=== PATIENT | male | born 1965 | race Two or more races ===

== ENCOUNTER 2018-10-01 02:55 | Emergency (ER) | payer SELFPAY ==
[~2018-10-01] VITALS: Ht 170.2 cm; Wt 63.5 kg
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
[2018-10-01] MEDS ORDERED: IV NS 0.9% 1,000 ML BAG IV ONE (03:00)
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
--- NOTE | 2018-10-01 03:08 | NUR ---
PT TAKEN TO RADIOLOGY VIA JODI WITH RN
[2018-10-01 03:30] LABS: BASOPHILS % (AUTO) 0.5 % (0.0-2.0); EOSINOPHILS % (AUTO) 1.1 % (0.0-6.0); HEMATOCRIT 43 % (39-51); HEMOGLOBIN 14.7 g/dL (13.5-17.5); LYMPHOCYTES # (AUTO) 2.1 /CMM (0.8-4.8); LYMPHOCYTES % (AUTO) 28.5 % (20.0-44.0); MEAN CORPUSCULAR HGB CONC 34 g/dl (31.0-36.0); MEAN CORPUSCULAR VOLUME 98 fL (80-96); MONOCYTES # (AUTO) 0.7 /CMM (0.1-1.30); NEUTROPHILS # (AUTO) 4.4 /CMM (1.8-8.9); NEUTROPHILS % (AUTO) 59.9 % (43.0-81.0); PLATELET COUNT (AUTO) 271 /CMM (150-450); RED BLOOD CELL COUNT(AUTO) 4.44 MIL/uL (4.5-6.0); WHITE BLOOD COUNT (AUTO) 7.3 K/uL (4.3-11.0)
[2018-10-01] MEDS ORDERED: TDAP [DIPH/PERTUSSIS/TET] 0.5 ML VIAL IM ONE ×2 (03:30→03:41)
--- NOTE | 2018-10-01 03:30 | NUR ---
POLICE AT BEDSIDE
[2018-10-01] MEDS ORDERED: LIDOCAINE 1%-EPI 1:100,000 20 ML VIAL TP ONE (04:00)
--- NOTE | 2018-10-01 04:49 | NUR ---
Patient is resting comfortably in bed with eyes closed. Easily aroused. VSS.
--- NOTE | 2018-10-01 07:26 | NUR ---
REPORT GIVEN TO SANDOVAL BUTLER FOR DEBBI
--- NOTE | 2018-10-01 07:35 | NUR ---
patient a/ox3, nad, vss, head covered with bandage, dressing clean and dry.
--- NOTE | 2018-10-01 08:48 | NUR ---
CALLED [facility] FOR HOMELESS RESOURCES.
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
--- NOTE | 2018-10-01 10:09 | NUR ---
Patient discharged in stable condition. Written and verbal after care instructions given. Patient verbalizes understanding of instruction. Prescription provided. Peripheral IV removed.
[2018-10-01 10:14] VITALS: BP 120/71
--- NOTE | 2018-10-01 10:47 | NUR ---
PATIENT LEFT IN STABLE CONDITION. REMOVED BANDAGE, PATIENT REFUSED. EXPLAINED RISKS AND BENEFITS, STILL REFUSED.
== END 2018-10-01 10:48 | disposition home or self-care (01) ==
LOC: ER 02:55
DX: S01.81XA Laceration without foreign body of other part of head, initial encounter (principal); S01.01XA Laceration without foreign body of scalp, initial encounter; F10.129 Alcohol abuse with intoxication, unspecified; E03.9 Hypothyroidism, unspecified; Y00.XXXA Assault by blunt object, initial encounter; Y93.89 Activity, other specified; Y92.89 Other specified places as the place of occurrence of the external cause; Y99.8 Other external cause status; Y90.9 Presence of alcohol in blood, level not specified
CPT/HCPCS: 12007; 12013; 36415; 70450; 70486; 71045; 72125; 80307; 85025; 85730; 90471; 90715; 99284; A4606; J7030; G0480

== ENCOUNTER 2020-02-22 08:24 | Emergency (ER) | payer OTHER ==
[~2020-02-22] VITALS: Ht 167.6 cm; Wt 64.0 kg
[2020-02-22 08:37] VITALS: BP 144/102
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
== END 2020-02-22 08:53 | disposition home or self-care (01) ==
LOC: ER 08:24
DX: T16.2XXA Foreign body in left ear, initial encounter (principal); E03.9 Hypothyroidism, unspecified; Z60.2 Problems related to living alone; X58.XXXA Exposure to other specified factors, initial encounter; Y93.89 Activity, other specified; Y92.89 Other specified places as the place of occurrence of the external cause; Y99.8 Other external cause status

== ENCOUNTER 2020-03-21 18:21 | Emergency (ER) | payer OTHER ==
[~2020-03-21] VITALS: Ht 167.6 cm; Wt 68.0 kg
[2020-03-21 18:51] LABS: BASOPHILS % (AUTO) 0.3 % (0.0-2.0); EOSINOPHILS % (AUTO) 0.5 % (0.0-6.0); HEMATOCRIT 49 % (39-51); HEMOGLOBIN 16.2 g/dL (13.5-17.5); LYMPHOCYTES # (AUTO) 2.1 /CMM (0.8-4.8); MEAN CORPUSCULAR HGB CONC 33 g/dl (31.0-36.0); MEAN CORPUSCULAR VOLUME 96 fL (80-96); MONOCYTES # (AUTO) 0.9 /CMM (0.1-1.30); NEUTROPHILS # (AUTO) 4.9 /CMM (1.8-8.9); NEUTROPHILS % (AUTO) 62.2 % (43.0-81.0); PLATELET COUNT (AUTO) 317 /CMM (150-450); RED BLOOD CELL COUNT(AUTO) 5.11 MIL/uL (4.5-6.0); WHITE BLOOD COUNT (AUTO) 7.9 K/uL (4.3-11.0)
[2020-03-21 19:00] LABS: CALCIUM, SERUM 9.6 mg/dL (8.5-10.1); CARBON DIOXIDE 31 mmol/L (21-32); CHLORIDE 103 mmol/L (98-107); CREATININE 1.2 mg/dL (0.6-1.3); GLUCOSE 107 mg/dL (74-106); POTASSIUM 4.1 mmol/L (3.5-5.1); SODIUM SERUM 144 mmol/L (136-145); UREA NITROGEN, BLOOD 14 mg/dL (7-18)
[2020-03-21 19:14] LABS: ALANINE AMINOTRANSFERASE 24 U/L (12-78); ALBUMIN 4.4 g/dL (3.4-5.0); ALCOHOL, BLOOD 429 mg/dL (0-0); ALKALINE PHOSPHATASE 184 U/L (46-116); ASPARTATE AMINOTRANSFERASE 32 U/L (15-37); BILIRUBIN,DIRECT 0.1 mg/dL (0.0-0.2); BILIRUBIN,TOTAL 0.3 mg/dL (0.2-1.0); TOTAL PROTEIN, SERUM 8.8 g/dL (6.4-8.2)
[2020-03-21 19:16] LABS: ACETAMINOPHEN < 2 ug/ml (10-30); SALICYLATE 1.5 mg/dL (2.8-20.0)
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
--- NOTE | 2020-03-21 19:53 | NUR ---
ASKED PT TO PROVIDE URINE SAMPLE.
[2020-03-21 20:25] LABS: APPEARANCE,URINE Clear (CLEAR); BILIRUBIN,URINE Negative (NEGATIVE); BLOOD, URINE Small Ery/uL (NEGATIVE); COLOR,URINE Yellow (YELLOW); KETONES,URINE Negative (NEGATIVE); LEUKOCYTE ESTERASE ,URINE Negative (NEGATIVE); NITRITE, URINE Negative (NEGATIVE); PH,URINE 6.5 (5.0-8.0); PROTEIN,URINE Negative (NEGATIVE); UGLUCOSE Negative (NEGATIVE); UROBILINOGEN,URINE 0.2 EU/dL (0.2)
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
--- NOTE | 2020-03-21 20:37 | NUR ---
PROVIDED PT WITH ORANGE JUICE. PT APPEARS TO BE HAPPY.
[2020-03-21 20:40] LABS: BACTERIA,URINE Rare /HPF (None Seen); RBC,URINE 0-2 /HPF (0-2); SQUAMOUS EPITHELIAL CELL,UR None Seen /HPF (None Seen); WBC,URINE 0-2 /HPF (0-3)
--- NOTE | 2020-03-22 01:15 | NUR ---
PT PROVIDED WITH FOOD AND WATER. VSS.
--- NOTE | 2020-03-22 03:12 | NUR ---
Patient is resting comfortably in bed with eyes closed. Easily aroused. VSS.
--- NOTE | 2020-03-22 05:25 | NUR ---
Patient discharged to home in stable condition. Written and verbal after care instructions given. Patient verbalizes understanding of instruction. Pt ambulated with steady gait. vss.
[2020-03-22 05:26] VITALS: BP 127/76
== END 2020-03-22 05:27 | disposition home or self-care (01) ==
LOC: ER 18:30
DX: T51.8X1A Toxic effect of other alcohols, accidental (unintentional), initial encounter (principal); F10.129 Alcohol abuse with intoxication, unspecified; E03.9 Hypothyroidism, unspecified; Y90.8 Blood alcohol level of 240 mg/100 ml or more; Z59.0 Homelessness; Z60.2 Problems related to living alone; Y92.89 Other specified places as the place of occurrence of the external cause
CPT/HCPCS: 36415; 80048; 80076; 80305; 80307; 80329; 81001; 85025; 99283; G0480; 81000-TC

== ENCOUNTER 2020-11-02 23:13 | Emergency (ER) | payer OTHER ==
[~2020-11-02] VITALS: Ht 167.6 cm; Wt 62.6 kg
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
[2020-11-03 00:02] LABS: BASOPHILS % (AUTO) 0.3 % (0.0-2.0); EOSINOPHILS % (AUTO) 0.2 % (0.0-6.0); HEMATOCRIT 50 % (39-51); HEMOGLOBIN 16.5 g/dL (13.5-17.5); LYMPHOCYTES # (AUTO) 1.2 /CMM (0.8-4.8); LYMPHOCYTES % (AUTO) 7.8 % (20.0-44.0); MEAN CORPUSCULAR HGB CONC 33 g/dl (31.0-36.0); MEAN CORPUSCULAR VOLUME 96 fL (80-96); MONOCYTES # (AUTO) 0.6 /CMM (0.1-1.30); NEUTROPHILS # (AUTO) 13.3 /CMM (1.8-8.9); NEUTROPHILS % (AUTO) 87.7 % (43.0-81.0); PLATELET COUNT (AUTO) 332 /CMM (150-450); RED BLOOD CELL COUNT(AUTO) 5.16 MIL/uL (4.5-6.0); WHITE BLOOD COUNT (AUTO) 15.1 K/uL (4.3-11.0)
[2020-11-03] MEDS ORDERED: TDAP [DIPH/PERTUSSIS/TET] 0.5 ML VIAL IM ONE (00:04)
[2020-11-03] MEDS: TDAP [DIPH/PERTUSSIS/TET] 0.5 ML VIAL IM ONE (00:08)
[2020-11-03 00:20] LABS: CALCIUM, SERUM 8.5 mg/dL (8.5-10.1); CARBON DIOXIDE 26 mmol/L (21-32); CHLORIDE 106 mmol/L (98-107); CREATININE 0.8 mg/dL (0.6-1.3); GLUCOSE 100 mg/dL (74-106); POTASSIUM 4.2 mmol/L (3.5-5.1); SODIUM SERUM 141 mmol/L (136-145); UREA NITROGEN, BLOOD 10 mg/dL (7-18)
[2020-11-03 00:28] LABS: ALANINE AMINOTRANSFERASE 32 U/L (12-78); ALBUMIN 4.4 g/dL (3.4-5.0); ALCOHOL, BLOOD 328 mg/dL (0-0); ALKALINE PHOSPHATASE 84 U/L (46-116); ASPARTATE AMINOTRANSFERASE 32 U/L (15-37); BILIRUBIN,DIRECT 0.1 mg/dL (0.0-0.2); BILIRUBIN,TOTAL 0.3 mg/dL (0.2-1.0); TOTAL PROTEIN, SERUM 9.1 g/dL (6.4-8.2)
[2020-11-03 00:31] LABS: ACETAMINOPHEN < 2 ug/ml (10-30)
--- NOTE | 2020-11-03 01:25 | NUR ---
pt requesting to leave, dr. young made aware. dr. young at bs speaking with pt
--- NOTE | 2020-11-03 01:38 | NUR ---
Patient discharged to home in stable condition. Written and verbal after care instructions given. Patient verbalizes understanding of instruction. IV removed. Catheter intact and site benign. Pressure and 4x4 applied to site. No bleeding noted.
[2020-11-03 02:07] VITALS: BP 130/70
== END 2020-11-03 01:38 | disposition home or self-care (01) ==
LOC: ER 23:17
DX: S00.31XA Abrasion of nose, initial encounter (principal); S60.512A Abrasion of left hand, initial encounter; S60.511A Abrasion of right hand, initial encounter; S60.419A Abrasion of unspecified finger, initial encounter; F10.129 Alcohol abuse with intoxication, unspecified; M48.02 Spinal stenosis, cervical region; R41.82 Altered mental status, unspecified; E03.9 Hypothyroidism, unspecified; Y90.8 Blood alcohol level of 240 mg/100 ml or more; Z59.0 Homelessness; X58.XXXA Exposure to other specified factors, initial encounter; Y93.89 Activity, other specified; Y92.89 Other specified places as the place of occurrence of the external cause; Y99.8 Other external cause status
CPT/HCPCS: 36415; 70450-TC; 71045-TC; 72125-TC; 80048-TC; 80076-TC; 85025-TC; 90715; G0480

== ENCOUNTER 2020-12-22 16:50 | Emergency (ER) | payer OTHER ==
[~2020-12-22] VITALS: Ht 165.1 cm; Wt 63.5 kg
--- NOTE | 2020-12-22 17:20 | NUR ---
BIBS TO ER BED 6. AAOX4. NOT IN RESP DISTRESS. AMBULATORY. CAME IN FOR R HAND 5TH DIGIT REDNESS AND SWELLING X 1 CHRONIC. PROVIDER AT BEDSIDE FOR EVAL.
[2020-12-22] MEDS ORDERED: CLIN300C12 PO (18:47)
[2020-12-22] MEDS ORDERED: CLINDAMYCIN 900 MG/6 ML VIAL ONE (18:53)
[2020-12-22] MEDS: CLINDAMYCIN 900 MG/6 ML VIAL IM ONE (19:03)
[2020-12-22 19:07] VITALS: BP 144/89
--- NOTE | 2020-12-22 19:07 | NUR ---
Patient does not wish to proceed with medical care recommended by Dr. Arias Capellan. Patient given information related to possible complications, up to and including , which could occur as a result of leaving the hospital at this time. Patient verbalizes understanding of risks involved due to leaving against medical advice. Patient has signed AMA form.
== END 2020-12-22 19:08 | disposition left against medical advice (07) ==
LOC: ER 16:56
DX: M86.8X4 Other osteomyelitis, hand (principal); Z59.0 Homelessness; E03.9 Hypothyroidism, unspecified
CPT/HCPCS: 73140; 96372; 99283; J3490